=== PATIENT | female | born 1950 | race Caucasian/White ===

== ENCOUNTER 2018-01-21 08:07 | Day surgery (SDC) | payer OTHER ==
[~2018-01-21 08:07] MED LIST: LIDOCAINE 100 MG SYRINGE; SUCCINYLCHOLINE CHLORIDE 100 MG/5 ML SYG IV
[2018-01-21] MEDS ORDERED: ROCURONIUM 50 MG INJ (08:54)
[2018-01-21] MEDS ORDERED: MIDAZOLAM 1 MG/ML 2 ML INJ (08:54)
[2018-01-21] MEDS ORDERED: PROPOFOL 20 ML (08:54)
[2018-01-21] MEDS ORDERED: NEOSTIGMINE 3 MG/3 ML SYRINGE (08:54)
[2018-01-21] MEDS ORDERED: GLYCOPYRROLATE 0.4 MG INJ (08:54)
[2018-01-21] MEDS ORDERED: FENTAnyl 50 MCG/ML VIAL (08:54)
[2018-01-21] MEDS ORDERED: SOD CHLORIDE 0.9% 1,000 ML IV (09:00)
[2018-01-21] MEDS ORDERED: CEFAZOLIN 2 GM/50 ML (PMX) 50 ML IVPB (09:00)
[2018-01-21] MEDS ORDERED: LABETALOL HCL 20MG INJ (09:02)
[2018-01-21] MEDS ORDERED: DEXAMETHASONE 4 MG/ML 1 ML INJ (09:59)
[2018-01-21] MEDS ORDERED: ONDANSETRON 4 MG INJ (09:59)
[2018-01-21] MEDS: BUPIVACAINE 0.5%/EPI (SDV) 30 ML INJ (10:37)
[2018-01-21] MEDS ORDERED: ALBUTEROL 0.083% (NEB) 2.5 MG/3 ML AMP (11:11)
[2018-01-21] MEDS ORDERED: HYDROCODONE/APAP (5/325) TAB PO ×2 (11:30)
[2018-01-21] MEDS ORDERED: HYDROmorphONE 1 MG/5 ML IV SYRINGE IV (11:41)
[2018-01-21] MEDS: HYDROmorphONE 1 MG/5 ML IV SYRINGE IV (11:51)
[2018-01-21] MEDS ORDERED: IBUPROFEN 600 MG TAB PO (14:00)
== END 2018-01-21 13:51 | disposition home or self-care (01) ==
LOC: SDS 08:07
DX: D17.22 Benign lipomatous neoplasm of skin and subcutaneous tissue of left arm (principal); E11.9 Type 2 diabetes mellitus without complications; I10 Essential (primary) hypertension; E78.5 Hyperlipidemia, unspecified
CPT/HCPCS: 11406; 82962; 88305